=== PATIENT | female | born 1955 | race Two or more races ===

== ENCOUNTER 2022-04-10 07:51 | Emergency (ER) | payer MEDICARE, SELFPAY ==
[2022-04-10 07:52] VITALS: BP 155/114; PULSE 82; RESP 16; TEMP 35.8; O2SAT 99; BMI 21.9
--- NOTE | 2022-04-10 08:11 | RAD_ITS ---
HISTORY: cough. TECHNIQUE: XR Chest 1 View. COMPARISON: None. FINDINGS: CARDIOMEDIASTINAL BORDERS: Cardiac silhouette within normal limits in size. Mediastinal contour unremarkable. LUNGS: Calcified granuloma in the right lung base. Minimal linear opacity in the left lung base. PLEURA: No pleural effusion or pneumothorax seen. OSSEOUS STRUCTURES: Unremarkable. RAD/Chest 1 View (Portable) IMPRESSION: Very mild left basilar atelectasis. Electronically Signed: Iris Jones MD at 9:15 EDT ,
--- NOTE | 2022-04-10 08:11 | EKG12_ITS ---
Test Reason : CHEST PAIN Blood Pressure : / mmHG Vent. Rate : 074 BPM Atrial Rate : 074 BPM P-R Int : 152 ms QRS Dur : 080 ms QT Int : 360 ms P-R-T Axes : 057 064 050 degrees QTc Int : 399 ms Normal sinus rhythm Normal ECG Confirmed by KAIN STONE, ELENITA ([id number]), multimedia editor ERWIN SONI ([id number]) on 04/12/2022 12:49:30 PM Referred By: TRANG Confirmed By:ELENITA FINNEGAN MD
--- NOTE | 2022-04-10 08:15 | EDS_ITS ---
HPI History of Present Illness Chief Complaint: Dizziness Narrative Narrative: 66-year-old female presenting with ongoing symptoms of lightheadedness which started about the 30th. She tested positive for COVID-19 and attributed this dizziness and nausea to this. At times she states that when she walks this improves her dizziness. Other times she has dizziness simply at rest after doing nothing. She denies headaches. She has not had a fever. Patient describes some indigestion and dyspepsia but does not have any chest pain. She has a mild cough but nothing is productive. She states she has had a little bit of diarrhea but not a lot. She does not have really any abdominal pain. Patient was seen at the urgent care 2 days ago and had blood work done yesterday which is resulted and there were no acute abnormalities noted. PFSH PFSH Allergy/AdvReac Type Severity Reaction Status Date / Time Penicillins Allergy Itching Verified 04/10/22 07:52 Social History Smoking Status: Never smoker ROS ROS ED Constitutional Constitutional ED: Denies chills, fever(s) or sweats Eyes Eyes: Denies change in vision or diplopia ENT ENT ED: Reports sore throat; Denies rhinorrhea Cardiovascular Cardiovascular: Denies chest pain or palpitations Respiratory/Chest Respiratory/Chest: Reports cough; Denies dyspnea or dyspnea on exertion Gastrointestinal Gastrointestinal: Reports diarrhea, nausea and other Details: Dyspepsia ; Denies abdominal pain or constipation Genitourinary Genitourinary ED: Denies dysuria or hematuria Musculoskeletal Musculoskeletal: Denies arthralgias, back pain or myalgias Integumentary Denies abscess or Abrasions Neurologic Neurologic: Denies headache(s) Psychiatric Psychiatric: Denies anxiety or depression Endocrine Endocrinology: Denies cold intolerance or heat intolerance EXAM Physical Exam Const Vital Signs: 04/10/22 07:52 04/10/22 08:01 04/10/22 11:02 Temperature 96.5 F L Temperature Source Temporal Pulse Rate 82 62 Respiratory Rate 16 11 L Respiratory Effort Normal Respiratory Pattern Normal Blood Pressure 155/114 H 119/76 Blood Pressure Mean 127 90 Pulse Ox 99 98 Oxygen Delivery Method Room Air Room Air Positive well nourished General Appearance ED: NAD; Negative for pallor HEENT Reports TM's clear and moist mucous membranes Negative for trauma Tympanic Membrane ED: Yes TM's clear Eyes PERRL General Eye ED: Negative for pale conjunctiva or scleral icterus Neck no lymphadenopathy Chest Wall inspection of chest normal and palpation of chest normal Resp normal respiratory effort and clear to auscultation bilaterally Effort and Inspection: Negative for retractions Auscultation: Negative for rales, rhonchi or wheezes Cardio regular rate and regular rhythm GI normal to inspection, nondistended, normoactive bowel sounds, non-tender and non-distended Palpation: soft Extremity normal to inspection Neuro oriented x3 and CN's II-XII intact bilaterally Sensorium / Orientation: alert and orientation impaired Psych mental status grossly normal Skin no rashes or lesions noted General Skin Exam: Negative for jaundice or pallor MDM MDM MDM Narrative Medical decision making narrative: I obtained an EKG on arrival and on my interpretation this is a normal sinus rhythm with a ventricular rate of 74 bpm without signs of ischemic change or dysrhythmia. I was able to find her blood work on [facility] and she had a vitamin B12 level tested which was normal. Her serum ferritin was high at 263, and she has a history of iron deficiency anemia and is supplemented. Her iron binding studies were normal. T4 was 1.3. 3115 her CBC showed a white blood cell count of 6.15, hemoglobin 15.4, platelets 271. She was not lymphopenic. BUN was 11 and her creatinine was 0.69. Potassium 4.9, chloride 97, glucose 113. No anion gap. I did add a troponin here today as well as orthostatic vital signs, urinalysis, chest x-ray. Patient complaining of sore throat and wants to be tested for strep. Urinalysis was negative. High-sensitivity troponin is 7. Chest x-ray on my interpretation shows no acute cardiopulmonary process and the radiologist agree. Patient continues to feel dizzy and I suspect she has an atypical presentation of vertigo. I did look at her med list from her previous visit to the urgent care and she was prescribed meclizine for this. She states she took it and it did help her although when she stopped taking it stopped helping. I recommended she continue taking the meclizine. She has ENT she can follow-up if she needs to. Patient discharged home in stable condition. Impression: 1 vertigo 2. Weakness unknown cause Lab Data Attestation: I reviewed the patient's lab results. Labs: Laboratory Results - last 24 hr 04/10/22 04/10/22 08:50 09:34 Troponin I High Sens 7 Urine Color Yellow Urine Clarity Clear Urine pH 6.5 Ur Specific [place] 1.010 Urine Protein Negative Urine Glucose (UA) Normal Urine Ketones 5 H Urine Occult Blood Negative Urine Nitrite Negative Urine Bilirubin Negative Urine Urobilinogen Normal Ur Leukocyte Esterase 100 H Urine RBC 0 SEEN Urine WBC 0-5 SEEN Ur Squamous Epith Cells 0-5 SEEN Urine Bacteria 0 SEEN Urine Mucus 0 SEEN Radiography Diagnostic Testing: Clinical Impression(s) from Imaging Studies Chest X-Ray 04/10/22 08:11 IMPRESSION: Very mild left basilar atelectasis. Electronically Signed: Iris Jones MD at 9:15 EDT , Discharge Plan Triage Chief Complaint: Dizziness ED Provider: Samuel Gasca Dx/Rx/DC Orders Instructions: ED Vertigo, Unspecified, ED Weakness (Uncertain Cause) Primary Care Provider: Kate Kemp Referrals: Kate Kemp MD [Primary Care Provider] - Disposition Disposition: Home, Self Care
[2022-04-10 09:19] LABS: Troponin-I HS 7 pg/mL (3.0-54.0)
[2022-04-10 09:30] VITALS: BP 117/75; BP 128/82; BP 135/82; PULSE 67; PULSE 79; PULSE 84
[2022-04-10 09:42] LABS: Bacteria 0 SEEN /hpf (None Seen); Mucous, Urine 0 SEEN /hpf (<or=2+); Red Blood Cells-Urine 0 SEEN /hpf (0-5)
[2022-04-10 09:51] LABS: Color, Urine Yellow (Yellow); Glucose, Dipstick Normal (Normal); Ketone-Dipstick 5 mg/dl (Negative); Leukocyte Esterase-Dipstick 100 /ul (Negative); Nitrite-Dipstick Negative (Negative); Occult Blood-Urine Negative /ul (Negative); Protein-Dipstick Negative (Negative); Urine Bilirubin Dipstick Negative (Negative); Urine Clarity Clear (Clear); Urine Urobilinogen Normal (Normal); Urine pH 6.5 (5.0 - 8.0)
[2022-04-10 10:08] LABS: Squamous Epithelial Cells - UA 0-5 SEEN /hpf (5-10); White Blood Cells 0-5 SEEN /hpf (0-5)
[2022-04-10] MEDS: Ondansetron 4 MG/2 ML Vial IV (11:01)
[2022-04-10 11:02] VITALS: BP 119/76; PULSE 62; RESP 11; O2SAT 98
--- NOTE | 2022-04-10 11:04 | NURSING ---
Ortho VS viewed w/ Dr. Gasca via monitor. Negative for orthostatic hypotension.
[2022-04-10 11:17] VITALS: BP 117/89; PULSE 72; RESP 15; O2SAT 98
== END 2022-04-10 11:17 | disposition home or self-care (01) ==
PROVIDERS: Emergency Provider Student in an Organized Health Care Education/Training Program; PCP Internal Medicine; Visit Provider Student in an Organized Health Care Education/Training Program
DX: R42 Dizziness and giddiness (principal); R53.1 Weakness; R05.9 Cough, unspecified; R19.7 Diarrhea, unspecified; J02.9 Acute pharyngitis, unspecified; J98.11 Atelectasis; Z86.16 Personal history of COVID-19
CPT/HCPCS: 71045; 81001; 84484; 87880; 93005; 96374; 99284; J2405